=== PATIENT | female | born 1995 | race American Indian/Alaskan Native ===

== ENCOUNTER 2016-11-17 00:07 | Emergency (ER) | payer MEDICAID ==
[2016-11-17] MEDS ORDERED: NORCO 5/325 PO ONE (03:26)
--- NOTE | 2016-11-17 03:27 | Emergency Department Report ---
ED Upper Extremity Inj HPI - General Chief Complaint: Extremity Injury, Upper Stated Complaint: RIGHT WRIST PAIN Time Seen by Provider: 11/17/16 03:26 Source: patient Mode of arrival: Ambulatory Limitations: No Limitations - History of Present Illness Initial Comments: Patient reports she slipped and fell down four steps and used her hands to brace her fall resulting in injury to her right thumb and right index finger. She denies dizziness, weakness or fatigue prior to fall. LMP 11/01/16 Complaint: Injury to:: right, hand Onset/Timin -: days(s) Other Extremity Injury: Hand: Right Other Injuries: none Handedness: right Place: home Severity scale (0 -10): 8 Improves With: immobilization, rest Worsens With: movement of extremity Context: fall Associated Symptoms: denies other symptoms. denies: weakness, numbness, neck pain, suspects foreign body, nausea/vomiting, heard/felt popping sensat Treatments Prior to Arrival: NSAIDS - Related Data Previous Rx's Medication Instructions Recorded Last Taken Type Acetaminophen/Codeine 1 tab PO Q6H PRN #20 tab 02/02/15 Unknown Rx [Acetaminophen-Codeine #3 TAB] Azithromycin [Zithromax Z-JOSE] 250 mg PO DAILY #6 tablet 02/02/15 Unknown Rx Fluconazole [Diflucan] 150 mg PO ONCE #1 tablet 02/02/15 Unknown Rx Neomycin Cook/Colist/Hc/Thonzon 4 drop AU TID #1 bottle 02/02/15 Unknown Rx [Cortisporin-Tc Ear Susp 0.33/0.3/1/0.05%] Diclofenac Sodium 50 mg PO BID #20 tablet. 11/17/16 Unknown Rx Allergies Allergy/AdvReac Type Severity Reaction Status Date / Time No Known Allergies Allergy Verified 02/02/15 21:11 ED Review of Systems ROS: Stated complaint: RIGHT WRIST PAIN Other details as noted in HPI Constitutional: denies: chills, diaphoresis, fever, malaise, weakness Respiratory: denies: cough, orthopnea, shortness of breath, SOB with exertion, SOB at rest, stridor, wheezing Cardiovascular: denies: chest pain, palpitations, dyspnea on exertion, orthopnea , edema, syncope, paroxysmal nocturnal dyspnea Gastrointestinal: denies: abdominal pain, nausea, vomiting, diarrhea, constipation Musculoskeletal: arthralgia (right hand). denies: back pain, joint swelling, myalgia Skin: denies: rash, lesions, change in color, change in hair/nails, pruritus Neurological: denies: headache, weakness, numbness, paresthesias, confusion, abnormal gait, vertigo Hematological/Lymphatic: denies: easy bleeding, easy bruising, swollen glands ED Past Medical Hx - Past Medical History Hx Hypertension: Yes (no BP meds x 3 mos.) Hx Psychiatric Treatment: Yes (depression) Hx Asthma: Yes - Surgical History Past Surgical History?: No - Social History Smoking Status: Current Every Day Smoker Substance Use Type: Alcohol - Medications Home Medications: Home Medications Medication Instructions Recorded Confirmed Last Taken Type Acetaminophen/Codeine 1 tab PO Q6H PRN #20 tab 02/02/15 Unknown Rx [Acetaminophen-Codeine #3 TAB] Azithromycin [Zithromax Z-JOSE] 250 mg PO DAILY #6 tablet 02/02/15 Unknown Rx Fluconazole [Diflucan] 150 mg PO ONCE #1 tablet 02/02/15 Unknown Rx Neomycin Cook/Colist/Hc/Thonzon 4 drop AU TID #1 bottle 02/02/15 Unknown Rx [Cortisporin-Tc Ear Susp 0.33/0.3/1/0.05%] Diclofenac Sodium 50 mg PO BID #20 tablet. 11/17/16 Unknown Rx ED Physical Exam - General Limitations: No Limitations General appearance: alert, in no apparent distress - Head Head exam: Present: atraumatic, normocephalic - ENT ENT exam: Present: normal exam, mucous membranes moist. Absent: mucous membranes dry - Neck Neck exam: Present: normal inspection, full ROM. Absent: tenderness, meningismus, lymphadenopathy, thyromegaly - Respiratory Respiratory exam: Present: normal lung sounds bilaterally. Absent: respiratory distress, wheezes, rales, rhonchi, stridor, chest wall tenderness, accessory muscle use, decreased breath sounds, prolonged expiratory - Cardiovascular Cardiovascular Exam: Present: regular rate, normal rhythm, normal heart sounds. Absent: systolic murmur, diastolic murmur, rubs, gallop, clicks, JVD, S3, S4 - Extremities Exam Extremities exam: Present: normal inspection, full ROM, normal capillary refill. Absent: tenderness, pedal edema, joint swelling, calf tenderness - Expanded Upper Extremity Exam Right Hand Wrist exam: Present: full ROM (limited by pain to the right thumb and right index finger), tenderness (with palpation to the right thumb and distal right index finger), swelling (right thumb and proximal index finger). Absent: abrasion, laceration, ecchymosis, deformity, crepidus, dislocation, erythema, amputation, nail avulsion, subungual hematoma Neuro motor exam: Present: wrist extension intact, thumb opposition intact, thumb adduction intact. Absent: thumb IP flexion intact, fingers 2-5 abduction intact (unable to perform with 2nd finger) Neurosensory exam: Present: 2-point discrimination, radial nerve intact, ulnar nerve intact, median nerve intact Vascular: Present: normal capillary refill, radial pulse (2+), brachial pulse (2 +), ulnar pulse (2+). Absent: vascular compromise, Pallo, pulse deficit radial art, pulse deficit ulnar art, pulse deficit brachial art - Back Exam Back exam: Present: normal inspection, full ROM. Absent: CVA tenderness (R), CVA tenderness (L) - Neurological Exam Neurological exam: Present: alert, oriented X3, CN II-XII intact, normal gait, reflexes normal. Absent: motor sensory deficit - Skin Skin exam: Present: warm, dry, intact, normal color. Absent: rash ED Course Vital Signs 11/17/16 00:20 Temperature 98.2 F Pulse Rate 92 H Respiratory 20 Rate Blood Pressure 142/96 O2 Sat by Pulse 99 Oximetry - Reevaluation(s) Reevaluation #1: 11/17/16 03:58 Pain medication and radiology studies ordered ED Medical Decision Making - Lab Data Vital Signs 11/17/16 00:20 Temperature 98.2 F Pulse Rate 92 H Respiratory 20 Rate Blood Pressure 142/96 O2 Sat by Pulse 99 Oximetry - Radiology Data Radiology results: image reviewed PROCEDURE: XR HAND FOUR VIEWS RIGHT TECHNIQUE: RIGHT hand radiographs, AP, lateral, and 2 oblique views. CPT 40255-AI HISTORY: Right hand pain after trauma. Right hand pain/fall COMPARISON: No prior studies are available for comparison. FINDINGS: Fracture (s) and/or Dislocation(s): None . Alignment: Normal . Joint space(s): Normal . Soft tissues: Normal . Bone mineralization: Normal . Foreign bodies: None . IMPRESSION: There is no plain film evidence of fracture or dislocation.. - Medical Decision Making During the course of ED, pain medication and radiology studies were ordered. Imaging study reveal no evidence of fracture or dislocation. After pain medication administered in the ED, she was able to perform thumb IP flexion intact and 2-5 fingers abduction intact. Patient was placed in a Velcro thumb spica splint, sent home with prescription for Diclofec Sodium, instructed to follow with selective referrals given at discharge, she verbalize understanding - Differential Diagnosis Right hand pain, Right hand fracture Critical care attestation.: If time is entered above; I have spent that time in minutes in the direct care of this critically ill patient, excluding procedure time. ED Disposition Clinical Impression: Right hand pain Disposition: DISCHARGED TO HOME OR SELFCARE Is pt being admited?: No Does the pt Need Aspirin: No Condition: Stable Instructions: Arthralgia (ED) Additional Instructions: Take medication as directed. Wear splint for comfort. Follow up with the selective referral given at discharge Prescriptions: Diclofenac Sodium 50 mg PO BID #20 tablet.dr Referrals: OTIS OTERO MD [Primary Care Provider] - 3-5 Days ALLEGRA GASTELUM MD [Staff Physician] - 3-5 Days Forms: Accompanied Note, Work/School Release Form(ED) Time of Disposition: 04:34
--- NOTE | 2016-11-17 04:22 | XRay Report ---
FINAL REPORT PROCEDURE: XR HAND FOUR VIEWS RIGHT TECHNIQUE: RIGHT hand radiographs, AP, lateral, and 2 oblique views. CPT 24022-SX HISTORY: Right hand pain after trauma. Right hand pain/fall COMPARISON: No prior studies are available for comparison. FINDINGS: Fracture (s) and/or Dislocation(s): None . Alignment: Normal . Joint space(s): Normal . Soft tissues: Normal . Bone mineralization: Normal . Foreign bodies: None . IMPRESSION: There is no plain film evidence of fracture or dislocation..
[2016-11-17 05:48] VITALS: BP 138/89
== END 2016-11-17 05:51 | disposition home or self-care (01) ==
LOC: ED 00:07
DX: S69.81XA Other specified injuries of right wrist, hand and finger(s), initial encounter (principal); W01.0XXA Fall on same level from slipping, tripping and stumbling without subsequent striking against object, initial encounter; Y93.89 Activity, other specified; Y92.89 Other specified places as the place of occurrence of the external cause; Y99.8 Other external cause status

== ENCOUNTER 2017-06-23 02:16 | Outpatient (CLI) | payer MEDICAID ==
[2017-06-23] MEDS ORDERED: LACTATED RINGERS 1,000 ML IV ONE (03:20)
[2017-06-23 03:58] LABS: Bilirubin,Urine NEG (Negative); Blood,Urine NEG (Negative); Ketones,Urine 80 mg/dL (Negative); Leukocyte Esterase,Urine NEG (Negative); Mucus,Urine FEW /HPF; Nitrite,Urine NEG (Negative); Protein,Urine <15 mg/dL mg/dL (Negative); Urobilinogen,Urine < 2.0 mg/dL (<2.0)
[2017-06-23] MEDS ORDERED: ZOFRAN IM ONE (04:15)
[2017-06-23 05:54] LABS: Hematocrit 29.9 % (30.3-42.9); Hemoglobin 9.9 gm/dl (10.1-14.3); Mean Corpuscular HGB Conc 33 % (30-34); Mean Corpuscular Hemoglobin 29 pg (28-32); Mean Corpuscular Volume 89 fl (79-97); Platelet Count 199 K/mm3 (140-440); Red Blood Count 3.35 M/mm3 (3.65-5.03); Red Cell Distribution Width 12.5 % (13.2-15.2); White Blood Count 11.5 K/mm3 (4.5-11.0)
[2017-06-23 06:10] LABS: Blood Urea Nitrogen 3 mg/dL (7-17); Calcium 8.1 mg/dL (8.4-10.2); Carbon Dioxide 22 mmol/L (22-30); Glucose 94 mg/dL (65-100)
[2017-06-23 06:11] LABS: Albumin 2.9 g/dL (3.9-5); Albumin/Globulin Ratio 0.9 %; Alkaline Phosphatase 118 units/L (35-129); Anion Gap 16 mmol/L; Chloride 99.8 mmol/L (98-107); Potassium 3.1 mmol/L (3.6-5.0); Sodium 135 mmol/L (137-145); Total Protein 6.1 g/dL (6.3-8.2)
[2017-06-23 06:12] LABS: Alanine Aminotransferase < 5 units/L (7-56)
[2017-06-23] MEDS ORDERED: ZOFRAN IV ONE (07:36)
[2017-06-23] MEDS ORDERED: NACL 0.9% 1000 ML 1,000 ML IV SCH (09:00)
[2017-06-23] MEDS: KCL 10MEQ/100ML 10 MEQ/100 ML BAG IV SCH ×2 (09:00→10:05)
[2017-06-23 10:50] VITALS: BP 128/82
== END 2017-06-23 11:02 | disposition home or self-care (01) ==
LOC: TRG 02:16
PROVIDERS: ATTEND Obstetrics & Gynecology
DX: O99.333 Smoking (tobacco) complicating pregnancy, third trimester (principal); O47.03 False labor before 37 completed weeks of gestation, third trimester; Z3A.31 31 weeks gestation of pregnancy
CPT/HCPCS: 36415; 59025; 80053; 81001; 85027; 96360; 96361; 96365; 96366; J2405; J3480; J7030; J7120

== ENCOUNTER 2019-12-08 15:20 | Emergency (ER) | payer MEDICAID ==
--- NOTE | 2019-12-08 16:44 | Emergency Department Report ---
Upper Respiratory HPI - HPI Chief Complaint: Upper Respiratory Infection Stated Complaint: FLU SYM Time Seen by Provider: 12/08/19 16:38 Duration: 2 weeks URI Symptoms: Rhinorrhea: Yes, Sore Throat: Yes, Ear Pain: No, Cough: Yes, Shortness of Breath: No, Sick Contacts: No, Unable to Take Fluids: No, Urine Output Abnormal: No, Listless Behavior: No Other History: This is a 24-year-old female nontoxic well in appearnce with no signs of distress presents with sore throat and dry nonproductive cough x2 weeks. Patient denies any chest pain, shortness of breathe, fever, chills, nausea, vomiting, headache, stiff neck, abdominal pain, numbness or tingling. Patient denies any recent travels, long car rides, or recent hospital stays. Denies any allergies or significant PMH. - Home Meds and Allergies Home Medications: Previous Rx's Medication Instructions Recorded Last Taken Type Acetaminophen/Codeine 1 tab PO Q6H PRN #20 tab 02/02/15 Unknown Rx [Acetaminophen-Codeine #3 TAB] Azithromycin [Zithromax Z-JOSE] 250 mg PO DAILY #6 tablet 02/02/15 Unknown Rx Fluconazole [Diflucan] 150 mg PO ONCE #1 tablet 02/02/15 Unknown Rx Neomycin Cook/Colist/Hc/Thonzon 4 drop AU TID #1 bottle 02/02/15 Unknown Rx [Cortisporin-Tc Ear Susp 0.33/0.3/1/0.05%] Diclofenac Sodium 50 mg PO BID #20 tablet. 11/17/16 Unknown Rx Vits96/Iron Fum/Folic 1 each PO QDAY #30 tablet 10/26/18 Unknown Rx [ Tablet] metroNIDAZOLE [Metronidazole] 500 mg PO Q8H 7 Days #21 tablet 10/26/18 Unknown Rx Azithromycin [Zithromax Z-JOSE] 250 mg PO DAILY #6 tablet 12/08/19 Unknown Rx Benzonatate [Tessalon Perles] 100 mg PO Q8HR PRN #20 capsule 12/08/19 Unknown Rx Ibuprofen [Motrin] 600 mg PO Q8H PRN #20 tablet 12/08/19 Unknown Rx Allergies/Adverse Reactions: Allergies Allergy/AdvReac Type Severity Reaction Status Date / Time No Known Allergies Allergy Verified 02/02/15 21:11 ED Review of Systems ROS: Stated complaint: FLU SYM Other details as noted in HPI Constitutional: denies: chills, fever Eyes: denies: eye pain, eye discharge, vision change ENT: throat pain, congestion. denies: ear pain Respiratory: cough. denies: shortness of breath, wheezing Cardiovascular: denies: chest pain, palpitations Endocrine: no symptoms reported Gastrointestinal: denies: abdominal pain, nausea, diarrhea Genitourinary: denies: urgency, dysuria, discharge Musculoskeletal: denies: back pain, joint swelling, arthralgia Skin: denies: rash, lesions Neurological: denies: headache, weakness, paresthesias Psychiatric: denies: anxiety, depression Hematological/Lymphatic: denies: easy bleeding, easy bruising ED Past Medical Hx - Past Medical History Previous Medical History?: Yes Hx Hypertension: Yes (GHTN) Hx Diabetes: No Hx Deep Vein Thrombosis: No Hx Renal Disease: No Hx Sickle Cell Disease: No Hx Seizures: No Hx Psychiatric Treatment: Yes (depression) Hx Asthma: Yes (last asthmatic attack- 8 mths ago) Hx HIV: No - Social History Smoking Status: Current Every Day Smoker Substance Use Type: Alcohol - Medications Home Medications: Home Medications Medication Instructions Recorded Confirmed Last Taken Type Acetaminophen/Codeine 1 tab PO Q6H PRN #20 tab 02/02/15 Unknown Rx [Acetaminophen-Codeine #3 TAB] Azithromycin [Zithromax Z-JOSE] 250 mg PO DAILY #6 tablet 02/02/15 Unknown Rx Fluconazole [Diflucan] 150 mg PO ONCE #1 tablet 02/02/15 Unknown Rx Neomycin Cook/Colist/Hc/Thonzon 4 drop AU TID #1 bottle 02/02/15 Unknown Rx [Cortisporin-Tc Ear Susp 0.33/0.3/1/0.05%] Diclofenac Sodium 50 mg PO BID #20 tablet. 11/17/16 Unknown Rx Vits96/Iron Fum/Folic 1 each PO QDAY #30 tablet 10/26/18 Unknown Rx [ Tablet] metroNIDAZOLE [Metronidazole] 500 mg PO Q8H 7 Days #21 tablet 10/26/18 Unknown Rx Azithromycin [Zithromax Z-JOSE] 250 mg PO DAILY #6 tablet 12/08/19 Unknown Rx Benzonatate [Tessalon Perles] 100 mg PO Q8HR PRN #20 capsule 12/08/19 Unknown Rx Ibuprofen [Motrin] 600 mg PO Q8H PRN #20 tablet 12/08/19 Unknown Rx ED Bronchiolitis Physical Exam - Exam General: Vital signs noted. No distress. Alert and acting appropriately. Neurologic: Alert and oriented, no deficits. Musculoskeletal: Unremarkable. ED Physical Exam - General Limitations: No Limitations General appearance: alert, in no apparent distress - Head Head exam: Present: atraumatic, normocephalic - Eye Eye exam: Present: normal appearance - Expanded ENT Exam Expanded Ear exam: Present: normal external inspection Mouth exam: Present: normal external inspection, tongue normal. Absent: drooling, trismus Teeth exam: Present: normal inspection Throat exam: Positive: tonsillar erythema, other (uvula midline). Negative: tonsillomegaly, tonsillar exudate, R peritonsillar mass, L peritonsillar mass - Neck Neck exam: Present: normal inspection, full ROM. Absent: tenderness, meningismus, lymphadenopathy - Respiratory Respiratory exam: Present: normal lung sounds bilaterally. Absent: respiratory distress, wheezes, rales, rhonchi, stridor, chest wall tenderness, accessory muscle use, decreased breath sounds, prolonged expiratory - Cardiovascular Cardiovascular Exam: Present: regular rate, normal rhythm, normal heart sounds. Absent: bradycardia, tachycardia, irregular rhythm, systolic murmur, diastolic murmur, rubs, gallop - Extremities Exam Extremities exam: Present: normal inspection, full ROM - Back Exam Back exam: Present: normal inspection, full ROM - Neurological Exam Neurological exam: Present: alert, oriented X3, normal gait - Psychiatric Psychiatric exam: Present: normal affect, normal mood - Skin Skin exam: Present: warm, dry, intact, normal color. Absent: rash ED Course - Reevaluation(s) Reevaluation #1: 12/08/19 16:42 Patient is speaking in full sentences with no signs of distress noted. ED Medical Decision Making - Medical Decision Making 24-year-old female that presents with pharyngitis and bronchitis like symptoms. Patient is stable and was examined by me. Will treat empirecally with Zpack due to continuing and worsening of symptoms. Vital signs are stable. Patient was instructed to Follow-up with a primary care doctor in 3-5 days or if symptoms worsen and continue return to emergency room as soon as possible. At time of discharge, the patient does not seem toxic or ill in appearance. No acute signs of distress noted. Patient agrees to discharge treatment plan of care. No further questions noted by the patient. Critical care attestation.: If time is entered above; I have spent that time in minutes in the direct care of this critically ill patient, excluding procedure time. ED Disposition Clinical Impression: Bronchitis Pharyngitis Qualifiers: Pharyngitis/tonsillitis etiology: unspecified etiology Qualified Code(s): J02.9 - Acute pharyngitis, unspecified Disposition: - TO HOME OR SELFCARE Is pt being admited?: No Does the pt Need Aspirin: No Condition: Stable Instructions: Acute Bronchitis (ED) Additional Instructions: Follow-up with a primary care doctor in 3-5 days or if symptoms worsen and continue return to emergency room as soon as possible. Prescriptions: Ibuprofen [Motrin] 600 mg PO Q8H PRN #20 tablet PRN Reason: Pain/Fever Benzonatate [Tessalon Perles] 100 mg PO Q8HR PRN #20 capsule PRN Reason: Cough Azithromycin [Zithromax Z-JOSE] 250 mg PO DAILY #6 tablet Referrals: PRIMARY CAREMD [Referring] - 3-5 Days EZRA WILSON MD [Staff Physician] - 3-5 Days [facility] [Outside] - 3-5 Days Forms: Work/School Release Form(ED)
== END 2019-12-08 18:05 | disposition home or self-care (01) ==
LOC: ED 15:20
DX: J40 Bronchitis, not specified as acute or chronic (principal); J02.9 Acute pharyngitis, unspecified; I10 Essential (primary) hypertension; F32.9 Major depressive disorder, single episode, unspecified; F17.200 Nicotine dependence, unspecified, uncomplicated; Z79.1 Long term (current) use of non-steroidal anti-inflammatories (NSAID); Z79.899 Other long term (current) drug therapy
CPT/HCPCS: 99282